=== PATIENT | female | born 1990 | race Caucasian/White ===

== ENCOUNTER 2017-05-23 19:54 | Emergency (ER) | payer OTHER ==
[2017-05-23 19:59] VITALS: RESP 18
--- NOTE | 2017-05-23 20:19 | EDPHY ---
H & P Stated Complaint: abd pain with vaginal bleeding and cramping Time Seen by Provider: 05/23/17 20:09 HPI/ROS: CHIEF COMPLAINT: "I think I am miscarrying " HISTORY OF PRESENT ILLNESS: 26-year-old female currently approximately 8 weeks , complaining of continued vaginal spotting/bleeding, abdominal cramping for the past 1 week. She was seen 1 week ago at [facility], had an ultrasound showing that she may be experiencing spontaneous , was found to be Rh negative at that time given RhoGAM injection. She returns to the ER complaining of continued vaginal bleeding with passage of clots as well as abdominal cramping suprapubic region. Denies: Dizziness, syncope or near syncope, back or flank pain, nausea or vomiting, urinary abnormality. REVIEW OF SYSTEMS: A ten point review of systems was performed and is negative with the exception of the items mentioned in the HPI PAST MEDICAL & SURGICAL HISTORY: currently weeks . Rh negative , given RhoGAM 1 week ago SOCIAL HISTORY: Nonsmoker PHYSICAL EXAM (Prior to examination, patient consented to physical exam, hands were washed and my usual and customary physical exam procedures followed) 1) GENERAL: Well-developed, well-nourished, alert and oriented. Appears to be in no acute distress. 2) HEAD: Normocephalic, atraumatic 3) HEENT: Pupils equal, round, reactive to light bilaterally. Sclera anicteric. 4) NECK: Full range of motion, no meningeal signs. 5) LUNGS: Clear auscultation bilaterally, no wheezes, no rhonchi, no retractions. 6) HEART: Regular rate and rhythm, no murmur, no heave, no gallop. 7) ABDOMEN: No guarding, no rebound, no focal tenderness, negative McBurney's, negative Aviles's, negative Rovsing's, negative peritoneal sign, 8) MUSCULOSKELETAL: Moving all extremities, no focal areas of tenderness, no obvious trauma. No peripheral edema or discoloration. 9) BACK: No CVA tenderness, no midline vertebral tenderness, no fluctuance, no step-off, no obvious trauma, no visual or palpable abnormality. 10) SKIN: No rash, no petechiae. [11) PELVIC (with female nurse Chantell at bedside): Dried blood on the external genitalia, no lesions visualized. Speculum examination reveals subacute blood in the vaginal vault and clots, os open,, normal vaginal rugae, DIFFERENTIAL DIAGNOSIS: No particular include but limited to spontaneous , complete , threatened , ectopic - Personal History LMP (Females 10-55): Current Tetanus/Diphtheria Vaccine: Yes Current Tetanus Diphtheria and Acellular Pertussis (TDAP): Yes - Medical/Surgical History Hx Asthma: No Hx Chronic Respiratory Disease: No Hx Diabetes: No Hx Cardiac Disease: No Hx Renal Disease: No Hx Cirrhosis: No Hx Alcoholism: No Hx HIV/AIDS: No Hx Splenectomy or Spleen Trauma: No Other PMH: denies - Social History Smoking Status: Never smoked Constitutional: Initial Vital Signs Temperature (C) 37.1 C 05/23/17 19:55 Heart Rate 92 05/23/17 19:55 Respiratory Rate 18 05/23/17 19:55 Blood Pressure 106/72 05/23/17 19:55 O2 Sat (%) 96 05/23/17 19:55 O2 Delivery Mode Nasal Cannula Allergies/Adverse Reactions: No Known Allergies Allergy (Unverified 05/23/17 19:58) Home Medications: Medication Instructions Recorded NK [No Known Home Meds] 05/23/17 Medical Decision Making - Diagnostics Imaging Results: Imaging Impressions Obstetrics Ultrasound 05/23/17 20:20 Impression: Intrauterine of uncertain viability. Given the passage of clots and the irregular shape and movement of the gestational sac during the exam, a miscarriage may be in progress. Recommend continued close clinical follow-up, serial beta hCGs and repeat ultrasound, as clinically indicated. Dr. Holden discussed these findings by telephone with Syed Carroll on at 22:51. Images reviewed by myself ED Course/Re-evaluation: 830 p.m.: Patient has already had RhoGAM injection few days ago. 11:16p.m.: Patient was re-evaluated with serial examinations. I discussed her imaging results showing a likely in progress. She has follow-up with OBGYN at the [facility] in [place]. Today is Friday evening. She is hemodynamically stable. At this time I do not think that hospitalization or emergent OBGYN consultation is indicated. Patient has been unable to provide a urine sample and does not want to wait further in the emergency department. She feels comfortable being discharged with usual customary instructions. Care of patient under supervision of secondary supervising physician Dr Sosa with whom I discussed care - Data Points Laboratory Results: Laboratory Results 05/23/17 20:25 05/23/17 20:25 05/23/17 05/23/17 20:25 20:25 WBC 10.54 10^3/uL H 10^3/uL (3.80-9.50) RBC 4.05 10^6/uL L 10^6/uL (4.18-5.33) Hgb 12.2 g/dL L g/dL (12.6-16.3) Hct 34.6 % L % (38.0-47.0) MCV 85.4 fL fL (81.5-99.8) MCH 30.1 pg pg (27.9-34.1) MCHC 35.3 g/dL g/dL (32.4-36.7) RDW 12.2 % % (11.5-15.2) Plt Count 229 10^3/uL 10^3/uL (150-400) MPV 9.5 fL fL (8.7-11.7) Neut % (Auto) 73.1 % % (39.3-74.2) Lymph % (Auto) 19.9 % % (15.0-45.0) Garrett % (Auto) 4.7 % % (4.5-13.0) Eos % (Auto) 1.4 % % (0.6-7.6) Baso % (Auto) 0.6 % % (0.3-1.7) Nucleat RBC Rel Count 0.0 % % (0.0-0.2) Absolute Neuts (auto) 7.70 10^3/uL H 10^3/uL (1.70-6.50) Absolute Lymphs (auto) 2.10 10^3/uL 10^3/uL (1.00-3.00) Absolute Monos (auto) 0.50 10^3/uL 10^3/uL (0.30-0.80) Absolute Eos (auto) 0.15 10^3/uL 10^3/uL (0.03-0.40) Absolute Basos (auto) 0.06 10^3/uL 10^3/uL (0.02-0.10) Absolute Nucleated RBC 0.00 10^3/uL 10^3/uL (0-0.01) Immature Gran % 0.3 % % (0.0-1.1) Immature Gran # 0.03 10^3/uL 10^3/uL (0.00-0.10) Sodium 139 mEq/L mEq/L (134-144) Potassium 3.2 mEq/L L mEq/L (3.5-5.2) Chloride 106 mEq/L mEq/L (97-110) Carbon Dioxide 22 mEq/l mEq/l (22-31) Anion Gap 11 mEq/L mEq/L (8-16) BUN 8 mg/dL mg/dL (7-23) Creatinine 0.5 mg/dL L mg/dL (0.6-1.0) Estimated GFR > 60 Glucose 115 mg/dL H mg/dL (70-100) Calcium 8.9 mg/dL mg/dL (8.5-10.4) Total Bilirubin 0.3 mg/dL mg/dL (0.1-1.4) Conjugated Bilirubin 0.1 mg/dL mg/dL (0.0-0.5) Unconjugated Bilirubin 0.2 mg/dL mg/dL (0.0-1.1) AST 18 IU/L IU/L (14-46) ALT 27 IU/L IU/L (9-52) Alkaline Phosphatase 55 IU/L IU/L (38-126) Total Protein 5.5 g/dL L g/dL (6.3-8.2) Albumin 3.3 g/dL L g/dL (3.5-5.0) Lipase 61 IU/L IU/L (23-300) Beta HCG, Quant 80965.00 mIU/mL H mIU/mL (0.00-4.83) Medications Given: Discontinued Medications Morphine Sulfate (Morphine) 4 mg IVP EDNOW ONE Stop: 05/23/17 21:43 Last Admin: 05/23/17 21:46 Dose: 4 mg Departure - Departure Disposition: Home, Routine, Self-Care Clinical Impression: Spontaneous Condition: Good Instructions: Hydrocodone/Acetaminophen (By mouth), Miscarriage (ED) Additional Instructions: Return to emergency department if you developed worsening pain, if you develop increase in bleeding, if you develop lightheadedness, back pain, or any other symptoms that concern you. Referrals: Follow-up, with your OBGYN on Friday [Other] - As per Instructions
[2017-05-23 20:31] LABS: % IMMATURE GRANULYOCYTES 0.3 % (0.0-1.1); ABSOLUTE IMMATURE GRANULOCYTES 0.03 10^3/uL (0.00-0.10); ADD DIFF? NO; ADD MORPH? NO; ADD SCAN? NO; ATYPICAL LYMPHOCYTE FLAG 10 (0-99); FRAGMENT RBC FLAG 0 (0-99); HEMATOCRIT 34.6 % (38.0-47.0); HEMOGLOBIN 12.2 g/dL (12.6-16.3); LEFT SHIFT FLG 0 (0-99); LIPEMIA HEMOLYSIS FLAG 90 (0-99); MEAN CELL HEMOGLOBIN 30.1 pg (27.9-34.1); MEAN CELL HEMOGLOBIN CONCENTR. 35.3 g/dL (32.4-36.7); MEAN CELL VOLUME 85.4 fL (81.5-99.8); MEAN PLATELET VOLUME 9.5 fL (8.7-11.7); PLATELET CLUMPS FLAG 0 (0-99); PLATELET COUNT 229 10^3/uL (150-400); RED BLOOD CELL COUNT 4.05 10^6/uL (4.18-5.33); RED CELL DISTRIBUTION WIDTH 12.2 % (11.5-15.2)
[2017-05-23 20:42] LABS: ALANINE AMINOTRANSFERASE 27 IU/L (9-52); ALBUMIN 3.3 g/dL (3.5-5.0); ALKALINE PHOSPHATASE 55 IU/L (38-126); ANION GAP 11 mEq/L (8-16); ASPARTATE AMINOTRANSFERASE 18 IU/L (14-46); BILIRUBIN,TOTAL 0.3 mg/dL (0.1-1.4); BILIRUBIN-CONJUGATED 0.1 mg/dL (0.0-0.5); BILIRUBIN-UNCONJUGATED 0.2 mg/dL (0.0-1.1); CALCIUM 8.9 mg/dL (8.5-10.4); CARBON DIOXIDE 22 mEq/l (22-31); CHLORIDE 106 mEq/L (97-110); CREATININE 0.5 mg/dL (0.6-1.0); GLOMERULAR FILTRATION RATE > 60; GLUCOSE 115 mg/dL (70-100); POTASSIUM 3.2 mEq/L (3.5-5.2); SODIUM 139 mEq/L (134-144); TOTAL PROTEIN 5.5 g/dL (6.3-8.2)
[2017-05-23] MEDS ORDERED: HYDROCOD/APAP 5/325 PREPACK#6 BTL TAKEHOME ONE (23:17)
[2017-05-23 23:37] VITALS: BP 96/51; PULSE 69; TEMP 98.6; O2SAT 97
== END 2017-05-24 | disposition home or self-care (01) ==
DX: O03.9 Complete or unspecified spontaneous abortion without complication (principal); Z3A.08 8 weeks gestation of pregnancy
CPT/HCPCS: 96374